=== PATIENT | female | born 1950 | race Caucasian/White ===

== ENCOUNTER → 2017-12-31 08:20 | Outpatient (CLI) | payer MEDICARE, OTHER ==
[2017-12-31 09:34] LABS: ALBUMIN 3.8 g/dL (3.4-5.0); BILIRUBIN - INDIRECT 0.15 mg/dL (0.00-1.00); BILIRUBIN - TOTAL 0.18 mg/dL (0.2-1.3); PROTEIN - SERUM 7.3 g/dL (6.4-8.2)
[2017-12-31 09:36] LABS: BILIRUBIN - DIRECT 0.03 mg/dL (0.00-0.30)
== END | disposition home or self-care (01) ==
LOC: D.US 08:20
PROVIDERS: Internal Medicine Gastroenterology
DX: K76.0 Fatty (change of) liver, not elsewhere classified (principal)